=== PATIENT | male | born 1990 | race Caucasian/White ===

== ENCOUNTER 2017-06-01 11:50 | Emergency (ER) | payer SELFPAY ==
[2017-06-01 11:59] VITALS: RESP 16; O2SAT 99
[2017-06-01] MEDS ORDERED: Sodium Chloride 0.9% 1,000 ML IV ONE (13:13)
[2017-06-01] MEDS ORDERED: Sodium Chloride 0.9% 1,000 ML ONE (13:40)
--- NOTE | 2017-06-01 13:43 | C.PDOC ---
History Of Present Illness 26 y/o male, with history of seizure disorder, BIBA status post tonic-clonic seizure at home, lasting about 2-3 minutes, with post-ictal phase. Patient admits to history of seizure disorder. Notes he used to take Keppra but has not taken it in 4-5 years; estimates he has seizure every 4-5 months. Father at bedside reports history of etoh abuse and that the patient has been having alcoholic withdrawal seizures. That patient also c/o right shoulder and left hip pain. Denies any chest pain, SOB, dizziness, tongue biting, or bowel/ bladder incontinence. Pt also requesting etoh detox. Time Seen by Provider: 06/01/17 13:04 Chief Complaint (Nursing): Weakness/Neurological Deficit History Per: Patient, Family History/Exam Limitations: no limitations Onset/Duration Of Symptoms: Mins Current Symptoms Are (Timing): Better Seizure Or Post-ictal Symptoms: Post-ictal Period. denies: Incontinent Of Urine , Incontinent Of Stool, Bit Tongue Fall Associated With With Symptoms: Yes, Positive Injury Recent travel outside of the [place]: No Past Medical History Reviewed: Historical Data, Nursing Documentation, Vital Signs Vital Signs: Last Vital Signs Temp 99.1 F 06/01/17 11:54 Pulse 101 H 06/01/17 11:54 Resp 16 06/01/17 11:54 BP 129/89 06/01/17 11:54 Pulse Ox 99 06/01/17 15:39 - Medical History PMH: Seizures (as a child and 4 years ago) Other Surgeries: left hip surgery for avascular necrosis Family History: States: Unknown Family Hx - Social History Hx Alcohol Use: Yes Hx Substance Use: No - Immunization History Hx Tetanus Toxoid Vaccination: No Hx Pneumococcal Vaccination: No Review Of Systems Except As Marked, All Systems Reviewed And Found Negative. Constitutional: Negative for: Fever, Chills Cardiovascular: Negative for: Chest Pain Respiratory: Negative for: Cough, Shortness of Breath Gastrointestinal: Negative for: Nausea, Vomiting, Diarrhea Musculoskeletal: Positive for: Shoulder Pain (Right), Other (Left Hip Pain) Skin: Negative for: Rash Neurological: Positive for: Seizures Physical Exam - Physical Exam Appears: Non-toxic, No Acute Distress Skin: Normal Color, Warm, Dry Head: Atraumatic, Normacephalic Eye(s): bilateral: Normal Inspection, PERRL, EOMI Oral Mucosa: Moist Tongue: No Bite Throat: Normal, No Erythema, No Exudate Neck: Normal ROM, No Midline Cervical Tenderness, No Paracervical Tenderness, Supple Chest: Symmetrical Cardiovascular: Rhythm Regular (tachy ) Respiratory: Normal Breath Sounds, No Rales, No Rhonchi, No Wheezing Gastrointestinal/Abdominal: Normal Exam, Soft, No Tenderness Back: Normal Inspection Extremity: Normal ROM, Tenderness (mild diffuse tenderness: left hip and right shoulder), Capillary Refill (< 2 sec.), No Deformity, No Swelling Extremity: Bilateral: Normal Color And Temperature Pulses: Left Radial: Normal, Right Radial: Normal, Left Dorsalis Pedis: Normal, Right Dorsalis Pedis: Normal Neurological/Psych: Oriented x3, Normal Speech, Normal Cognition ED Course And Treatment - Laboratory Results Result Diagrams: 06/01/17 13:39 06/01/17 13:39 O2 Sat by Pulse Oximetry: 99 (RA) Pulse Ox Interpretation: Normal - Other Rad RIGHT SHOULDER XRAY X-Ray: Viewed By Me, Read By Radiologist Interpretation: Accession No. : [id number]. Patient Name / ID : MACARIO HICKS / [id number]. Exam Date : 06/01/2017 14:13:39 ( Approved ). Study Comment : Sex / Age : M / 26Y. Creator : Cabrera Aragon MD. Dictator : Cabrera Aragon MD. Land Clearer : Molder Shoulder Pad : Cabrera Aragon MD. Approver2 : Report Date : 06/01/2017 15:01:11. My Comment : . PROCEDURE: Radiographs of the Right Shoulder. HISTORY: RIGHT SHOULDER PAIN AFTER FALL/ SEIZURE. COMPARISON: No prior. FINDINGS: BONES: Normal. No fracture. JOINTS: Normal. Glenohumeral and acromioclavicular joints preserved. No osteoarthritis. SOFT TISSUES: Normal. OTHER FINDINGS: None. IMPRESSION: Normal radiographs of the right shoulder. LEFT HIP X-RAY X-Ray: Viewed By Me, Read By Radiologist Interpretation: FINDINGS: BONES: There is a mixed pattern of curvilinear sclerosis and lucency beneath the femoral head consistent with avascular necrosis. There is evidence of core decompression with a tubular lucency protruding from the greater trochanter into the femoral head. Along the lateral border of the femoral head on the external rotation view, there is a defect in the contour of the bone. Although this does not have the appearance of atypical fracture, fracture cannot be excluded on the basis of this examination. If clinically warranted, consider further evaluation with computed tomography. There is no fracture appreciated elsewhere. JOINTS: Normal. SOFT TISSUES: Normal. OTHER FINDINGS: None. IMPRESSION: Avascular necrosis of left hip with evidence of prior core decompression surgery. There is a defect in the contour of the lateral femoral head of uncertain significance. Consider further radiographic evaluation to rule out fracture. Progress Note: Blood work, UA, UDS ordered and reviewed. Patient given IV NS bolus. Xrays of right shoulder and left hip ordered and reviewed. PO Naprosyn given for pain. Patient requesting detox from alcohol, states he is daily drinker, now admits to having withdrawal seizures. Seizure disorder vs alcohol withdrawal seizures. Patient previously has taken Keppra (4-5 yrs ago), will restart medication and recommend neuro consult. 3:10pm- Patient medically cleared. Recommend neurology consult during detox admission. Will Start Keppra 500mg PO BID. 5:00PM- Patient now states he does not want alcohol detox , he wants to be discharged home. Plan to give patient Keppra 500mg PO BID due to underlying seizure disorder. Patient also made aware of left hip CT scan findings, he states this issue is chronic and he also wants to follow up with orthopedics as outpatient. Rx for Keppra, and follow up information for ortho clinic and neurology given. Patient understands he needs to decrease alcohol intake slowly, and follow up as directed. He was instructed to return to ED if symptoms worsen. Disposition - Disposition Referrals: [facility] at [facility] [Outside] [facility] [Outside] [facility] [Outside] Laron Newton MD [Staff Provider] - Disposition: HOME/ ROUTINE Disposition Time: 17:00 Condition: STABLE Additional Instructions: YOU NEED TO FOLLOW UP WITH ORTHOPEDICS AND NEUROLOGY WITHIN 1 WEEK!! USE MEDICATION DIRECTED RETURN TO ER IF SYMPTOMS WORSEN Prescriptions: Levetiracetam [Keppra] 500 mg PO BID #60 tablet Instructions: Epilepsy (ED), Abuse of Alcohol (ED) Forms: [employer] (Yakut) Print Language: SYRIAC - Clinical Impression Clinical Impression: Avascular necrosis of bone of left hip, Alcohol dependence, Seizure disorder - Scribe Statement The provider has reviewed the documentation as recorded by the Ck Yip Provider Attestation: All medical record entries made by the Ck were at my direction and personally dictated by me. I have reviewed the chart and agree that the record accurately reflects my personal performance of the history, physical exam, medical decision making, and the department course for this patient. I have also personally directed, reviewed, and agree with the discharge instructions and disposition.
[2017-06-01 13:45] LABS: BASO % 0.3 % (0.0-2.0); EOS % 0.1 % (0.0-4.0); LYMPH # 0.5 K/uL (1.0-4.3); LYMPH % 6.1 % (20.0-40.0); MEAN CORPUSCULAR HGB CONC 33.3 g/dL (33.0-37.0); MEAN PLATELET VOLUME 7.6 fL (7.2-11.7); MONO # 1.1 K/uL (0.0-0.8); MONO % 11.9 % (0.0-10.0); NRBC % 0.5 % (0.0-2.0); PLATELET COUNT 309 K/uL (130-400); RED CELL DISTRIBUTION WIDTH 14.1 % (11.5-14.5); WHITE BLOOD COUNT 8.9 K/uL (4.8-10.8)
[2017-06-01 13:49] LABS: URINE BILIRUBIN NEGATIVE (NEGATIVE); URINE BLOOD NEGATIVE (NEGATIVE); URINE COLOR Yellow (YELLOW); URINE GLUCOSE (UA) NORMAL (Normal); URINE KETONE NEGATIVE (NEGATIVE); URINE LEUKOCYTE ESTERASE NEG Leu/uL (Negative); URINE PROTEIN 1+ mg/dL (NEGATIVE); URINE UROBILINOGEN NORMAL mg/dL (0.2-1.0); WBC URINE 1 /hpf (0-5)
[2017-06-01 14:02] LABS: ALB/GLOB RATIO 0.9 (1.0-2.1); ALCOHOL SERUM < 10 mg/dl (0-10); ALKALINE PHOSPHATASE 100 U/L (38-126); ALT/SGPT 447 U/L (21-72); AST/SGOT 304 U/L (17-59); BILIRUBIN,TOTAL 0.8 mg/dL (0.2-1.3); BLOOD UREA NITROGEN 5 mg/dL (9-20); CALCIUM 9.2 mg/dl (8.6-10.4); CARBON DIOXIDE 29 mmol/L (22-30); CHLORIDE 97 mmol/L (98-107); GFR AFRICAN-AMERICAN > 60; GLUCOSE,RANDOM 101 mg/dL (75-110); POTASSIUM 4.1 mmol/L (3.6-5.2); SODIUM 136 mmol/L (132-148); TOTAL PROTEIN 9.4 g/dL (6.3-8.3)
[2017-06-01 14:23] LABS: NEUTROPHIL 79 % (50-75); TOTAL CELLS COUNTED 100
--- NOTE | 2017-06-01 15:02 | RAD ---
PROCEDURE: Radiographs of the Right Shoulder HISTORY: RIGHT SHOULDER PAIN AFTER FALL/SEIZURE COMPARISON: No prior. FINDINGS: BONES: Normal. No fracture. JOINTS: Normal. Glenohumeral and acromioclavicular joints preserved. No osteoarthritis. SOFT TISSUES: Normal. OTHER FINDINGS: None. IMPRESSION: Normal radiographs of the right shoulder.
[2017-06-01] MEDS ORDERED: Naproxen 550 mg Tab PO STA (15:04)
[2017-06-01] MEDS ORDERED: levETIRAcetam 100 mg/ml (5ml) Oral Syringe PO STA (15:14)
[2017-06-01] MEDS ORDERED: Naproxen 550 mg Tab PO ONE (15:15)
--- NOTE | 2017-06-01 15:19 | RAD ---
PROCEDURE: Left Hip X-ray Radiographs. HISTORY: LEFT HIP PAIN AFTER FALL COMPARISON: None. FINDINGS: BONES: There is a mixed pattern of curvilinear sclerosis and lucency beneath the femoral head consistent with avascular necrosis. There is evidence of core decompression with a tubular lucency protruding from the greater trochanter into the femoral head. Along the lateral border of the femoral head on the external rotation view, there is a defect in the contour of the bone. Although this does not have the appearance of atypical fracture, fracture cannot be excluded on the basis of this examination. If clinically warranted, consider further evaluation with computed tomography. There is no fracture appreciated elsewhere. JOINTS: Normal. SOFT TISSUES: Normal. OTHER FINDINGS: None. IMPRESSION: Avascular necrosis of left hip with evidence of prior core decompression surgery. There is a defect in the contour of the lateral femoral head of uncertain significance. Consider further radiographic evaluation to rule out fracture.
--- NOTE | 2017-06-01 16:23 | CT ---
PROCEDURE: CT of the Left Hip. HISTORY: left hip history of avascular necrosis, r/o fx COMPARISON: No prior cross-sectional imaging available. Correlation made with left hip radiographs 06/01/2017.. TECHNIQUE: Contiguous axial images of the left hip were obtained. Coronal and sagittal reformats were generated. Total exam DLP 190.76 mGy -cm. This CT exam was performed using one or more of the following dose reduction techniques: Automated exposure control, adjustment of the mA and/or kV according to patient size, and/or use of iterative reconstruction technique. FINDINGS: No definite acute fracture appreciate this time however a lytic segment of bone is well corticated immediately deep to the weight-bearing cortex of the left femoral head compatible with avascular necrosis. Surgical defect from removal of a compression screw is appreciated at the greater trochanter, femoral neck and femoral head. No subluxation or dislocation. The acetabulum and femoral head weight-bearing segments are degenerated with cortical sclerosis but no osteophyte formation at this time. Local soft tissues grossly nonfocal. IMPRESSION: Avascular necrosis of the left femoral head is appreciate without collapse at this time. No definite acute fracture subluxation or dislocation. Defect from orthopedic screw are seen across the left femoral head neck and greater trochanter.
[2017-06-01 17:20] VITALS: BP 140/93; PULSE 81; TEMP 98.1
== END 2017-06-01 17:21 | disposition home or self-care (01) ==
LOC: C.ER 11:50
DX: F10.20 Alcohol dependence, uncomplicated (principal); G40.909 Epilepsy, unspecified, not intractable, without status epilepticus; M87.9 Osteonecrosis, unspecified
CPT/HCPCS: 73030; 73502; 73700; 80053; 81001; 82550; 85025; 96360; 99285; G0480; J7040

== ENCOUNTER 2017-06-02 11:52 | Emergency (ER) | payer OTHER ==
[2017-06-02 12:29] VITALS: RESP 20; O2SAT 100
--- NOTE | 2017-06-02 12:39 | C.PDOC ---
History Of Present Illness Tomi Jiang is a 26 year old male with a history of alcohol abuse who was seen here yesterday after having a seizure. Patient has had alcohol withdrawal seizures in the past, and has had a seizure every 4-5 months but has not been on seizure medication for several years. Of note, he suffered an injury to the left hip and had recurrent surgery 3 months ago, and was complaining of hip pain yesterday as well. Labs reviewed from yesterday demonstrate alcoholic liver disease. CT demonstrates avascular necrosis of left femoral head. Patient was to be admitted for alcohol detox yesterday, but did not want to stay and was given outpatient follow up with neurology and orthopedics. Patient states he woke up today and felt dizzy and somewhat shaky. He denies alcohol use since discharge. Patient shared his lab results with his mother, who was concerned about elevated LFTs, so he returns today requesting detox. PMD: Non H provider Time Seen by Provider: 06/02/17 11:55 Chief Complaint (Nursing): Dizziness/Lightheaded History Per: Patient History/Exam Limitations: no limitations Onset/Duration Of Symptoms: Intermittent Episodes Current Symptoms Are (Timing): Gone Past Medical History Reviewed: Historical Data, Nursing Documentation, Vital Signs Vital Signs: Last Vital Signs Temp 98.9 F 06/02/17 12:24 Pulse 88 06/02/17 12:24 Resp 20 06/02/17 12:24 BP 139/87 06/02/17 12:24 Pulse Ox 100 06/02/17 14:14 - Medical History PMH: Seizures (as a child and 4 years ago) Other Surgeries: Orthopedic surgeries Family History: States: Unknown Family Hx - Social History Hx Alcohol Use: Yes Hx Substance Use: No - Immunization History Hx Tetanus Toxoid Vaccination: No Hx Pneumococcal Vaccination: No Review Of Systems Except As Marked, All Systems Reviewed And Found Negative. Neurological: Negative for: Dizziness Physical Exam - Physical Exam Appears: Non-toxic, No Acute Distress Skin: Normal Color, Warm, Dry Head: Atraumatic, Normacephalic Eye(s): bilateral: Normal Inspection, PERRL, EOMI Oral Mucosa: Moist Neck: Normal, Normal ROM, No Midline Cervical Tenderness, No Paracervical Tenderness Cardiovascular: Rhythm Regular, No Murmur Respiratory: Normal Breath Sounds Gastrointestinal/Abdominal: Normal Exam, Soft, No Tenderness Back: Normal Inspection, No CVA Tenderness, No Vertebral Tenderness Extremity: Normal ROM, Tenderness (mild diffuse tenderness: left hip), Capillary Refill (< 2 sec), No Deformity Pulses: Left Radial: Normal, Right Radial: Normal Neurological/Psych: Oriented x3, Normal Speech, Normal Cranial Nerves Gait: Steady ED Course And Treatment - Laboratory Results Result Diagrams: 06/02/17 13:01 06/02/17 13:01 Lab Interpretation: Abnormal (LFTs slightly improved since yesterday.) O2 Sat by Pulse Oximetry: 100 (RA) Pulse Ox Interpretation: Normal Progress Note: Patient was seen in the ED by fuel system maintenance worker. He denies requesting alcohol detox and states that he only came back because his mother was concerned about his abnormal labs. He claims he can stop drinking on his own. He is advised to arrange follow up with the orthopedist and neurologist as recommended yesterday Reevaluation Time: 14:13 Reassessment Condition: Unchanged Medical Decision Making Medical Decision Making: Time: 12:36 Initial Impression: 26 year old male requesting alcohol detox Initial Plan: * Alcohol serum * CMP * Urine drug screen * CBC w/ differentials * Urinalysis * Will speak to fuel system maintenance worker regarding detox bed availability Disposition Counseled Patient/Family Regarding: Studies Performed, Diagnosis, Need For Followup - Disposition Referrals: [facility] [Outside] Disposition: HOME/ ROUTINE Disposition Time: 14:15 Condition: STABLE Instructions: Abuse of Alcohol (ED), Epilepsy (ED), Alcohol Withdrawal (ED) Forms: [employer] (Kinyarwanda) - Clinical Impression Clinical Impression: Dizziness, Seizure disorder, Alcohol dependence - Scribe Statement The provider has reviewed the documentation as recorded by the Scribsimón Caceres All medical record entries made by the Reginaldoibsimón were at my direction and personally dictated by me. I have reviewed the chart and agree that the record accurately reflects my personal performance of the history, physical exam, medical decision making, and the department course for this patient. I have also personally directed, reviewed, and agree with the discharge instructions and disposition.
[2017-06-02 13:11] LABS: BASO # 0.1 K/uL (0.0-0.2); BASO % 0.9 % (0.0-2.0); EOS # 0.1 K/uL (0.0-0.7); EOS % 1.4 % (0.0-4.0); LYMPH # 1.1 K/uL (1.0-4.3); LYMPH % 18.1 % (20.0-40.0); MEAN CELL VOLUME 84.6 fL (80.0-94.0); MEAN CORPUSCULAR HEMOGLOBIN 28.3 pg (27.0-31.0); MEAN CORPUSCULAR HGB CONC 33.5 g/dL (33.0-37.0); MEAN PLATELET VOLUME 7.8 fL (7.2-11.7); MONO # 0.8 K/uL (0.0-0.8); MONO % 14.3 % (0.0-10.0); WHITE BLOOD COUNT 5.9 K/uL (4.8-10.8)
[2017-06-02 13:15] LABS: RBC URINE < 1 /hpf (0-3); URINE BILIRUBIN NEGATIVE (NEGATIVE); URINE COLOR Yellow (YELLOW); URINE GLUCOSE (UA) NORMAL (Normal); URINE KETONE NEGATIVE (NEGATIVE); URINE LEUKOCYTE ESTERASE NEG Leu/uL (Negative); URINE PROTEIN NEGATIVE (NEGATIVE); WBC URINE < 1 /hpf (0-5)
[2017-06-02 13:16] LABS: URINE BLOOD TRACE (NEGATIVE)
[2017-06-02 13:30] LABS: ALB/GLOB RATIO 1.1 (1.0-2.1); ALCOHOL SERUM < 10 mg/dl (0-10); ALKALINE PHOSPHATASE 96 U/L (38-126); ALT/SGPT 370 U/L (21-72); AST/SGOT 257 U/L (17-59); BLOOD UREA NITROGEN 7 mg/dL (9-20); CALCIUM 9.4 mg/dl (8.6-10.4); CARBON DIOXIDE 29 mmol/L (22-30); CHLORIDE 96 mmol/L (98-107); GFR AFRICAN-AMERICAN > 60; GLUCOSE,RANDOM 93 mg/dL (75-110); POTASSIUM 4.3 mmol/L (3.6-5.2); SODIUM 136 mmol/L (132-148); TOTAL PROTEIN 8.5 g/dL (6.3-8.3)
[2017-06-02 14:21] VITALS: BP 140/87; PULSE 75; TEMP 98
== END 2017-06-02 14:25 | disposition home or self-care (01) ==
LOC: C.ER 11:52
DX: G40.909 Epilepsy, unspecified, not intractable, without status epilepticus (principal); F10.20 Alcohol dependence, uncomplicated; R42 Dizziness and giddiness

== ENCOUNTER 2018-11-29 20:57 | Observation (INO) | payer SELFPAY ==
--- NOTE | 2018-11-29 21:35 | C.PDOC ---
History Of Present Illness 28 y/o male comes in to ED with parents seeking alcohol rehab. States hes been drinking large volumes of alcohol for an extended period of time. Denies SI/HI. Time Seen by Provider: 11/29/18 21:21 Chief Complaint (Nursing): Medical Clearance History Per: Patient, Family History/Exam Limitations: no limitations Onset/Duration Of Symptoms: Days Current Symptoms Are (Timing): Still Present Past Medical History Reviewed: Historical Data, Nursing Documentation, Vital Signs Vital Signs: Last Vital Signs Temp 98.2 F 11/29/18 21:16 Pulse 97 H 11/29/18 21:16 Resp 16 11/29/18 21:16 BP 113/72 11/29/18 21:16 Pulse Ox 96 11/29/18 21:16 Primary Care Provider: FAMILY PROVIDER,NO - Medical History PMH: Seizures (as a child and 4 years ago) Family History: States: No Known Family Hx - Social History Hx Alcohol Use: Yes Hx Substance Use: No - Immunization History Hx Tetanus Toxoid Vaccination: No Hx Pneumococcal Vaccination: No Review Of Systems Except As Marked, All Systems Reviewed And Found Negative. Psych: Positive for: Other (alcohol abuse). Negative for: Suicidal ideation Physical Exam - Physical Exam Appears: Non-toxic, No Acute Distress, Other (tall thin male) Skin: Warm, Dry Head: Normacephalic Eye(s): bilateral: Normal Inspection Oral Mucosa: Moist Neck: Supple Cardiovascular: Rhythm Regular, No Murmur Respiratory: Normal Breath Sounds, No Rales, No Rhonchi, No Wheezing Gastrointestinal/Abdominal: Soft, No Tenderness Extremity: Bilateral: Atraumatic, Normal Color And Temperature Neurological/Psych: Oriented x3, Normal Speech Gait: Steady ED Course And Treatment O2 Sat by Pulse Oximetry: 96 (RA) Pulse Ox Interpretation: Normal Medical Decision Making Medical Decision Making: Plan: --Labs --UA persistent alcohol abuse counseled to f/u as opt for Rehab Disposition Doctor Will See Patient In The: Office Counseled Patient/Family Regarding: Studies Performed, Diagnosis - Disposition Referrals: [facility] [Outside] [facility] [Outside] [facility] [Outside] [facility] [Outside] [facility] [Outside] Disposition: HOME/ ROUTINE Disposition Time: 21:35 Condition: GOOD Additional Instructions: follow-up with Rehabilitation Programs per our Crisis Counselor's Referrals. Instructions: Alcohol Use - When Is Drinking a Problem?, Effects of Alcohol on Your Health, Drug Abuse Treatment Forms: [employer] (Mongolian) - Clinical Impression Clinical Impression: Alcohol dependence - Scribe Statement The provider has reviewed the documentation as recorded by the Ck Becerra Provider Attestation: All medical record entries made by the Ck were at my direction and personally dictated by me. I have reviewed the chart and agree that the record accurately reflects my personal performance of the history, physical exam, medical decision making, and the department course for this patient. I have also personally directed, reviewed, and agree with the discharge instructions and disposition.
[2018-11-29 22:32] LABS: BASO # 0.1 K/uL (0.0-0.2); EOS # 0.1 K/uL (0.0-0.7); EOS % 2.7 % (0.0-4.0); HEMOGLOBIN 15.7 g/dL (12.0-18.0); LYMPH # 1.8 K/uL (1.0-4.3); LYMPH % 33.4 % (20.0-40.0); MEAN CELL VOLUME 86.8 fL (80.0-94.0); MEAN CORPUSCULAR HEMOGLOBIN 29.5 pg (27.0-31.0); MEAN PLATELET VOLUME 7.4 fL (7.2-11.7); MONO # 0.4 K/uL (0.0-0.8); MONO % 7.4 % (0.0-10.0); NEUT % 55.5 % (50.0-75.0); NRBC % 0.1 % (0.0-2.0); RBC 5.31 Mil/uL (4.40-5.90); RED CELL DISTRIBUTION WIDTH 16.2 % (11.5-14.5); WHITE BLOOD COUNT 5.4 K/uL (4.8-10.8)
[2018-11-29 22:37] LABS: SQUAMOUS EPITHIAL 1 /hpf (0-5); URINE BACTERIA RARE (<OCC); URINE BILIRUBIN NEGATIVE (NEGATIVE); URINE BLOOD NEGATIVE (NEGATIVE); URINE CLARITY Clear (Clear); URINE COLOR Yellow (YELLOW); URINE GLUCOSE (UA) NORMAL (Normal); URINE LEUKOCYTE ESTERASE NEG Leu/uL (Negative); URINE PROTEIN NEGATIVE (NEGATIVE)
[2018-11-29 22:47] LABS: BARBITURATES, UR NEGATIVE (NEGATIVE); OPIATES, UR NEGATIVE (NEGATIVE); PHENCYCLIDINE, UR NEGATIVE (NEGATIVE)
[2018-11-29 22:52] LABS: ALB/GLOB RATIO 1.3 (1.0-2.1); ALT/SGPT 141 U/L (21-72); AST/SGOT 147 U/L (17-59); BLOOD UREA NITROGEN 6 mg/dL (9-20); CALCIUM 9.8 mg/dl (8.6-10.4); GFR NON-AFRICAN AMERICAN > 60
[2018-11-29 22:53] LABS: BENZODIAZEPINES, UR POSITIVE (NEGATIVE)
--- NOTE | 2018-11-30 02:33 | PCM.BM ---
Treatment Plan Problems - Problems identified on initial assessmt Anxiety R/T Substance Use Date Initiated: 11/30/18 Time Initiated: 03:00 Assessment reference: NA Status: Active Denial Date Initiated: 11/30/18 Time Initiated: 03:00 Assessment reference: NA Status: Active Defensive Coping Date Initiated: 11/30/18 Time Initiated: 03:00 Assessment reference: NA Status: Active Treatment assets and liabiliti Patient Assests: cooperative, self-reliant, ADL independent, physically healthy, good support system, cognitively intact Patient Liabilities: substance abuse - Milieu Protocol Maintain good personal hygiene: daily Encourage regular showers, daily Remind patient to perform daily oral care, daily Assist patient to perform ADL's Conduct patient checks and document Observation sheet: Q15 minutes Maintain personal safety: every shift Educate patient to report safety concerns to staff, every shift Monitor environment for contraband/sharps Medication safety: Monitor for expected outcome, potential side effects: every shift, Assess barriers to learning: every shift, Assess readiness for medication education: every shift
--- NOTE | 2018-11-30 10:45 | PCM.PSYCH ---
Initial Psychiatric Evaluation - Initial Psychiatric Evaluation Type of Admission: Voluntary Legal Status: Capacity Chief Complaint (in patient's own words): I came here to get help.' History of Present Illness and Precipitating Events: Patient is a 28 years old Malag[place] male, who is currently unemployed, came to the ED for alcohol detox. Pt reports of drinking upto 1-2 pints daily, along with benzos. Pt. reports that yesterday he consumed almost 2 pints and developed withdrawal symptoms so he came to the hospital to get help. Patient denies any past history of inpatient psychiatric hospitalizations. He reports history of few detoxes in the past. He denies any history of any inpatient psychiatric hospitalizations. Pt. reports withdrawal symptoms including anxiety, shakes, nausea, abdominal pain and sweating. Patient reports depressed mood, but denies any feelings of hopelessness and helplessness. He reports poor sleep and poor appetite. He denies any suicidal ideation and homicidal ideation. He denies any auditory or visual hallucinations. Patient also denies any other substance abuse. PMH: h/o Seizures Current Medications: Active Medications Generic Name Dose Route Start Last Admin Trade Name Freq PRN Reason Stop Dose Admin Clonidine HCl 0.1 mg 11/30/18 02:34 Catapres PO Q6 PRN Symptoms of alcohol withdrawl Hydroxyzine HCl 25 mg 11/30/18 02:34 11/30/18 02:59 Atarax PO 25 mg Q6 PRN Administration Anxiety Past Psychiatric History - Past Psychiatric History Previous Treatment History: None Pertinent Medical Hx (Current Medical&Sleep Prob, Allergies): Allergies Allergy/AdvReac Type Severity Reaction Status Date / Time No Known Allergies Allergy Verified 06/01/17 12:07 Levetiracetam [Keppra] 500 mg PO BID #60 tablet 06/01/17 Review of Systems - Review of Systems All systems: reviewed and no additional remarkable complaints except - Psychiatric Psychiatric: Anxiety, Irritability. absent: Suicidal Ideation Mental Status Examination - Personal Presentation Personal Presentation: Looks stated age - Affect Affect: Constricted - Motor Activity Motor Activity: Calm - Reliability in Providing Information Reliability in Providing Information: Fair - Speech Speech: Organized - Mood Mood: Anxious - Formal Thought Process Formal Thought Process: No Impairment - Obsessions/Compulsions Obsessions: No Compulsions: No - Cognitive Functions Orientation: Person, Place, Situation, Time Sensorium: Alert Attention/Concentration: Attentive Abstract Thinking: [place] Estimate of Intelligence: Below average Judgement: Imparied, as evidence by: Poor judgement, Intact, as evidence by: Insight regarding need for hospitalization - Risk Risk: Withdrawal, Diminished functioning - Limitations Limitations: Living alone DSM 5 DX - DSM 5 DSM 5 Diagnosis: Alcohol use disorder severe Alcohol withdrawal uncomplicated Depressive disorder - Recommended/Plan of Treatment Treatment Recommendations and Plan of Treatment: Alcohol use disorder severe Alcohol withdrawal uncomplicated Depressive Disorder -CBT -Psychoeducation -Supportive therapy, individual therapy -Clonidine when necessary -Ativan when scoring -Withdrawal medications including thiamine/ MVI/Folic Acid -Neurontin for augmentation -Hydroxyzine for anxiety -Trazodone for insomnia - Smoking Cessation Smoking Cessation Initiated: No
[2018-11-30] MEDS ORDERED: Aluminum Hydroxide/Magnesium Hydroxide Susp (30 mL) PO PRN (10:48)
[2018-11-30] MEDS: Multiple Vitamins Tab PO SCH (11:40)
--- NOTE | 2018-11-30 14:55 | CP.PCM.PCO ---
Physician Communication Note - Physician Communication Note Physician Communication Note: Pt's observation status changed and he was admitted to detox
[2018-12-01] MEDS: Multiple Vitamins Tab PO SCH (09:23)
[2018-12-01 09:28] VITALS: RESP 18; O2SAT 98
[2018-12-01 12:10] VITALS: BP 126/86; PULSE 96; TEMP 98
--- NOTE | 2018-12-01 13:29 | PCM.PYCHDC ---
Mental Status Examination - Mental Status Examination Orientation: Person, Place, Situation, Time Memory: Intact Mood: Neutral Affect: Constricted Speech: Soft Attention: WNL Concentration: WNL Association: WNL Fund of Knowledge: WNL Formal Thought Process: No Impairment Description of patient's judgement and insight: partially impaired Psychotic Thoughts and Behaviors: denies any AVH Suicidal Ideation: No Current Homicidal Ideation?: No Discharge Summary - Discharge Note Reason for Hospitalization: Patient is a 28 years old Citizen Of [place] male, who is currently unemployed, came to the ED for alcohol detox. Pt reports of drinking upto 1-2 pints daily, along with benzos. Pt. reports that yesterday he consumed almost 2 pints and developed withdrawal symptoms so he came to the hospital to get help. Patient denies any past history of inpatient psychiatric hospitalizations. He reports history of few detoxes in the past. He denies any history of any inpatient psychiatric hospitalizations. Pt. reports withdrawal symptoms including anxiety, shakes, nausea, abdominal pain and sweating. Patient reports depressed mood, but denies any feelings of hopelessness and helplessness. He reports poor sleep and poor appetite. He denies any suicidal ideation and homicidal ideation. He denies any auditory or visual hallucinations. Patient also denies any other substance abuse. Consultations:: List each consultation separately and include: 1. Reason for request. 2. Findings. 3. Follow-up Summary of Hospital Course include:: 1. Description of specific treatment plan utilized for patients during their course of treatmen. 2. Summarize the time- course for resolution of acute symptoms and/or regressed behaviors. 3. Describe issues identified and worked on during hospitalization. 4. Describe medication utilized. 5. Describe medical problems identified and treated. 6. Reassessment of suicide risk Summary of Hospital Course: Patient is a 28 years old Citizen [place] male, who is currently unemployed, came to the ED for alcohol detox. Pt reports of drinking upto 1-2 pints daily, along with benzos. Pt. reports that yesterday he consumed almost 2 pints and developed withdrawal symptoms so he came to the hospital to get help. Patient denies any past history of inpatient psychiatric hospitalizations. He reports history of few detoxes in the past. He denies any history of any inpatient psychiatric hospitalizations. Pt. reports withdrawal symptoms including anxiety, shakes, nausea, abdominal pain and sweating. Patient reports depressed mood, but denies any feelings of hopelessness and helplessness. He reports poor sleep and poor appetite. He denies any suicidal ideation and homicidal ideation. He denies any auditory or visual hallucinations. Patient also denies any other substance abuse. PMH: h/o Seizures - Final Diagnosis (DSM 5) Condition upon Discharge: GOOD DSM 5: Alcohol use disorder severe Alcohol withdrawal uncomplicated Depressive Disorder Disposition: AGAINST MEDICAL ADVICE Follow-up Treatment Plan: Alcohol use disorder severe Alcohol withdrawal uncomplicated Depressive Disorder -CBT -Psychoeducation -Supportive therapy, individual therapy -Clonidine when necessary -Ativan when scoring -Withdrawal medications including thiamine/ MVI/Folic Acid -Neurontin for augmentation -Hydroxyzine for anxiety -Trazodone for insomnia
== END 2018-12-01 13:30 | disposition left against medical advice (07) ==
LOC: C.ER 20:57 → C.7D 11-30 01:57
PROVIDERS: ADMIT Psychiatry & Neurology Psychiatry; ATTEND Psychiatry & Neurology Psychiatry
DX: F10.239 Alcohol dependence with withdrawal, unspecified (principal); F32.9 Major depressive disorder, single episode, unspecified; F41.9 Anxiety disorder, unspecified; R11.0 Nausea; R10.9 Unspecified abdominal pain; Y90.8 Blood alcohol level of 240 mg/100 ml or more; Z79.899 Other long term (current) drug therapy
CPT/HCPCS: 80053; 81001; 83735; 84100; 85025; 99283; G0378; G0480